=== PATIENT | male | born 1995 | race Caucasian/White ===

== ENCOUNTER 2017-11-23 06:39 | Inpatient (IN) | payer BC ==
[2017-11-23] MEDS ORDERED: methylPREDNISolone NA SUCC 125 MG/2 ML VIAL ONE (06:55)
[2017-11-23] MEDS ORDERED: methylPREDNISolone NA SUCC 125 MG/2 ML VIAL IVPB ONE (06:56)
[2017-11-23] MEDS ORDERED: EPINEPHrine 1:1,000 1 MG/1 ML - 30ML VIAL (INJECTION) IV ONE (06:56)
[2017-11-23] MEDS ORDERED: RACEPINEPHRINE IH SOL 2.25% 11.25 MG/0.5 ML VIAL IH ONE (06:57)
[2017-11-23] MEDS ORDERED: EPINEPHrine/PF 1 MG/1 ML (1:1,000) AMPULE ONE (06:58)
[2017-11-23] MEDS ORDERED: RACEPINEPHRINE IH SOL 2.25% 11.25 MG/0.5 ML VIAL NEB ONE (06:59)
--- NOTE | 2017-11-23 07:14 | PDOC ---
History of Present Illness - General Chief Complaint: Shortness of Breath Stated Complaint: S.O.B. Time Seen by Provider: 11/23/17 07:13 Past History - Past Medical History Allergies/Adverse Reactions: Allergies Allergy/AdvReac Type Severity Reaction Status Date / Time No Known Allergies Allergy Verified 11/23/17 06:54 Home Medications: Ambulatory Orders NK [No Known Home Medication] 11/23/17 - Suicide/Smoking/Psychosocial Hx Smoking History: Never smoked Have you smoked in the past 12 months: No Information on smoking cessation initiated: No Hx Alcohol Use: No Drug/Substance Use Hx: No *Physical Exam - Vital Signs Last Vital Signs Temp Pulse Resp BP Pulse Ox 98.7 F 91 H 18 129/74 99 11/23/17 06:52 11/23/17 06:52 11/23/17 06:52 11/23/17 06:52 11/23/17 06:52 ED Treatment Course - Medications Given in the ED: ED Medications Discontinued Medications Generic Name Dose Route Start Last Admin Trade Name Alonzo PRN Reason Stop Dose Admin Diphenhydramine HCl 50 mg 11/23/17 06:57 11/23/17 07:04 Benadryl Injection - IVPB 11/23/17 06:58 50 mg ONCE ONE Administration Epinephrine 30 mcg 11/23/17 06:56 11/23/17 07:04 Epinephrine 1:1,000 - IV 11/23/17 06:57 30 mcg ONCE ONE Administration Epinephrine 1 vial 11/23/17 06:57 11/23/17 07:04 S-2 IH 11/23/17 06:58 1 vial ONCE ONE Administration Methylprednisolone Sodium Succinate 125 mg 11/23/17 06:56 11/23/17 07:04 Solu-Medrol - IVPB 11/23/17 06:57 125 mg ONCE ONE Administration
--- NOTE | 2017-11-23 07:24 | PDOC ---
Attending Attestation - HPI HPI: 11/23/17 07:49 The patient is a 22 year old male with no significant PMH who presents to the emergency department with swollen tonsils for 3 days. The patient reports that he has has similar episodes similar to this in the past . He reports that this morning his tonsil swelling got worse. The patient reports a subjective fever of 110. He reports associated neck and head pain. He denies any chest pain, shortness of breath, headache and dizziness.The patient denies denies and chills , nausea, vomiting, diarrhea or constipation. He denies any urinary symptoms.The patient denies any other complaints Documentation prepared by Chandu Mccormick, acting as territory sales manager medical for Les Samuel MD. - Physicial Exam PE: 11/23/17 07:50 Vitals: Triage vital signs reviewed General Appearance: No acute distress, well nourished, well developed Head: Atraumatic Nose: Nares patent bilaterally; no nasal congestion Throat: (+) slightly muffled voice, tonsils enlarged, kissing with exudate. Posterior oropharynx without erythema, mucous membranes moist Neck: Supple; No nuchal rigidity Chest Wall: Nontender Cardiac: Regular rate and rhythm, no murmurs, no rubs, no gallops Lungs: (+)stridor on lungs.Good air movement bilaterally Abdomen: Soft, nondistended, normal bowel sounds, nontender to palpation Genitourinary: Rectal: Exam deferred Extremities: Full range of motion to all extremities, no cyanosis, clubbing, or edema Skin: Warm and dry, no rashes or lesions, no rash, no petechiae Psych: Normal mood, normal affect - Medical Decision Making 11/23/17 08:00 The patient is a 22 year old male with no significant PMH who presents to the emergency department with swollen tonsils for 3 days. The patient will continue to me monitored with medication provided in ED. <Chandu Mccormick - Last Filed: 11/23/17 08:00> - Resident Resident Name: Franki Ramsey - ED Attending Attestation I have performed the following: I have examined & evaluated the patient, The case was reviewed & discussed with the resident, I agree w/resident's findings & plan, Exceptions are as noted - Medical Decision Making Moderate to severe tonsillar edema and swelling. Strength examination consistent with pharyngitis. 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 Tonsils are kissing on examination with uvula swelling. Patient also with slightly muffled voice. Patient treated with steroids nebs epinephrine by previous attending. Reevaluation: Patient observed in the emergency department for 3 hours. Still with persistent swelling of tonsils. At this time given moderate to severe symptoms we will observe overnight for IV antibiotics and continued steroids and ENT consultation. <Les Samuel - Last Filed: 11/23/17 12:09> *Review of Systems - Review of Systems Able to Perform ROS?: Yes Comments:: 11/23/17 07:50 Constitutional: (+)subjective fever. ENT: (+)swollen tonsils. No sore throat Cardiovascular: No palpitations; no chest pain Pulmonary: No cough; no trouble breathing Gastrointestinal: No nausea; no vomiting; no diarrhea Genitourinary: No urinary problems; no hematuria Skin: No rash Lymph system: No swollen glands Musculoskeletal: No joint swelling Neurological: No weakness; oo numbness; No Headache; no vertigo; no lightheadedness Psychiatric:No anxiety; no depression <Chandu Mccormick - Last Filed: 11/23/17 08:00>
--- NOTE | 2017-11-23 07:37 | PDOC ---
History of Present Illness - General Chief Complaint: Shortness of Breath Stated Complaint: S.O.B. 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 The patient states that he has had throat swelling since Thursday and he states that it acutely worsened this morning. He has also had subjective fevers yesterday and has been taking Tylenol. He has been tolerating his secretions. He denies any chills, nausea, vomiting, CP, SOB. Past History - Past Medical History Allergies/Adverse Reactions: Allergies Allergy/AdvReac Type Severity Reaction Status Date / Time No Known Allergies Allergy Verified 11/23/17 06:54 Home Medications: Ambulatory Orders NK [No Known Home Medication] 11/23/17 - Suicide/Smoking/Psychosocial Hx Smoking History: Never smoked Have you smoked in the past 12 months: No Information on smoking cessation initiated: No Hx Alcohol Use: No Drug/Substance Use Hx: No Review of Systems - Review of Systems Able to Perform ROS?: Yes Comments:: 11/23/17 07:37 GENERAL/CONSTITUTIONAL: Positive for fever. No chills. No weakness. HEAD, EYES, EARS, NOSE AND THROAT: Positive for throat and neck swelling with soreness. No change in vision. No ear pain or discharge. CARDIOVASCULAR: No chest pain, palpitations, or lightheadedness. RESPIRATORY: No cough, wheezing, shortness of breath, or hemoptysis. GASTROINTESTINAL: No nausea, vomiting, diarrhea, constipation, or abdominal pain. GENITOURINARY: No dysuria, frequency, hematuria, or change in urination. MUSCULOSKELETAL: No joint or muscle swelling or pain. No neck or back pain. SKIN: No rash or lesions. NEUROLOGIC: No headache, numbness, tingling, weakness, loss of consciousness, or change in strength/sensation. ENDOCRINE: No increased thirst. No abnormal weight change. HEMATOLOGIC/LYMPHATIC: No anemia, easy bleeding, or history of blood clots. ALLERGIC/IMMUNOLOGIC: No hives or skin allergy. Is the patient limited Liberian proficient: No *Physical Exam - Vital Signs Last Vital Signs Temp Pulse Resp BP Pulse Ox 98.7 F 91 H 18 129/74 99 11/23/17 06:52 11/23/17 06:52 11/23/17 06:52 11/23/17 06:52 11/23/17 06:52 - Physical Exam Comments: 11/23/17 07:39 GENERAL: Well developed, well nourished. Awake and alert. No acute distress. HEENT: Normocephalic, atraumatic. Hearing grossly normal. Moist mucous membranes. PERRLA, EOMI. No conjunctival pallor. Sclera are non-icteric. B/l tonsillar swelling and erythema, uvula midline, cannot visualize posterior pharynx. Voice mildly muffled. NECK: Supple. Full ROM. No JVD. Anterior cervical lymphadenopathy. CARDIOVASCULAR: Regular rate and rhythm. No murmurs, rubs, or gallops. PULMONARY: No evidence of respiratory distress. B/l rales present in all lung cook. ABDOMINAL: Soft. Non-tender. Non-distended. No rebound or guarding. GENITOURINARY: No CVA tenderness bilaterally. MUSCULOSKELETAL: Normal range of motion at all joints. No bony deformities or tenderness. EXTREMITIES: No cyanosis. No clubbing. No edema. No calf tenderness. SKIN: Warm and dry. Normal capillary refill. No rashes. No jaundice. NEUROLOGICAL: Alert, awake, appropriate. Cranial nerves 2-12 intact. Normal speech. Gait is normal without ataxia. PSYCHIATRIC: Cooperative. Good eye contact. Appropriate mood and affect. ED Treatment Course - LABORATORY CBC & Chemistry Diagram: 11/23/17 08:00 11/23/17 08:00 - Medications Given in the ED: ED Medications Discontinued Medications Generic Name Dose Route Start Last Admin Trade Name Freq PRN Reason Stop Dose Admin Diphenhydramine HCl 50 mg 11/23/17 06:57 11/23/17 07:04 Benadryl Injection - IVPB 11/23/17 06:58 50 mg ONCE ONE Administration Epinephrine 30 mcg 11/23/17 06:56 11/23/17 07:04 Epinephrine 1:1,000 - IV 11/23/17 06:57 30 mcg ONCE ONE Administration Epinephrine 1 vial 11/23/17 06:57 11/23/17 07:04 S-2 IH 11/23/17 06:58 1 vial ONCE ONE Administration Methylprednisolone Sodium Succinate 125 mg 11/23/17 06:56 05/14/18 07:04 Solu-Medrol - IVPB 11/23/17 06:57 125 mg ONCE ONE Administration Medical Decision Making - Medical Decision Making 11/23/17 07:40 The patient is a 22M with a PMH of recurrent tonsillar infections who presents to the ER with 2 days of throat swelling, lymphadenopathy, and fevers. Was given IM epi, racemic epi, solumedrol, and benadryl by the night team but does not feel better than his initial presentation. The patient is satting 100% on RA. Throat swab sent. Pt is tolerating his secretions. Will monitor closely. Pending labs/imaging. Soft tissue XR Read: AP and lateral views reveal a midline patent trachea with clear apices, reversal of cervical spine curvature, intact prevertebral soft tissues and normal appearing epiglottis. There is some prominence of the adenoids and tonsillar soft tissues. For more complete evaluation, further imaging with CT and direct visualization may be of help. 11/23/17 08:58 Labs significant for WBC 17. Will consult Dr. Verde, ENT, for recs. Likely dispo is admission for observation and IV abx. Rapid strep negative. I have consulted ENT, Dr. Verde. 11/23/17 09:36 Paged hospitalist for admission for IV abx and ENT. 11/23/17 10:16 I have admitted the patient to Dr. Wilkerson with Dr. Montoya for ID consult. *DC/Admit/Observation/Transfer Diagnosis at time of Disposition: Tonsillitis - Discharge Dispostion Condition at time of disposition: Stable Decision to Admit order: Yes - Referrals - Patient Instructions - Post Discharge Activity
[2017-11-23 08:07] LABS: BASO % 0.2 % (0-2.0); EOS % 0.5 % (0-4.5); HEMATOCRIT 37.1 % (35.4-49); HEMOGLOBIN 12.7 GM/dL (11.7-16.9); LYMPH % 18.4 % (8-40); MCH 30.6 pg (25.7-33.7); MCHC 34.3 g/dl (32.0-35.9); MEAN CELL VOLUME 89.1 fl (80-96); MEAN PLT VOLUME 7.9 fl (7.5-11.1); MONO % 5.3 % (3.8-10.2); NEUT % 75.6 % (42.8-82.8); PLATELET COUNT 245 K/MM3 (134-434); RBC 4.16 M/mm3 (4.00-5.60); RDW 12.9 % (11.9-15.9); WHITE BLOOD COUNT 17.4 K/mm3 (4.0-10.0)
[2017-11-23 08:37] LABS: ALBUMIN 3.7 g/dl (3.4-5.0); ANION GAP 10 (8-16); BILIRUBIN,TOTAL 0.4 mg/dL (0.2-1.0); BLOOD UREA NITROGEN 8 mg/dL (7-18); CALCIUM 8.2 mg/dL (8.5-10.1); CHLORIDE 106 mmol/L (98-107); CO2 25 mmol/L (21-32); CREATININE 0.8 mg/dL (0.7-1.3); GLUCOSE,RANDOM 120 mg/dL (74-106); POTASSIUM 3.6 mmol/L (3.5-5.1); SGOT/AST 31 U/L (15-37); SGPT/ALT 43 U/L (12-78); SODIUM 141 mmol/L (136-145); TOT PROT 6.8 g/dl (6.4-8.2)
[2017-11-23 08:38] LABS: ALK PHOS 108 U/L (45-117)
[2017-11-23] MEDS ORDERED: AMPICILLIN NA/SULBACTAM NA 1.5 GM in SODIUM CHLORIDE 100 ML IVPB ONE (10:26)
--- NOTE | 2017-11-23 13:39 | HP ---
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 The patient states that he has had throat swelling since Thursday and he states that it acutely worsened this morning. He has also had subjective fevers yesterday and has been taking Tylenol. He has been tolerating his secretions. He denies any chills, nausea, vomiting, CP, SOB. - Smoking History Smoking history: Never smoked Have you smoked in the past 12 months: No - Alcohol/Substance Use Hx Alcohol Use: No Home Medications - Allergies Allergies/Adverse Reactions: Allergies Allergy/AdvReac Type Severity Reaction Status Date / Time No Known Allergies Allergy Verified 11/23/17 06:54 - Home Medications Home Medications: Ambulatory Orders Amoxicillin/Potassium Clav [Augmentin 875-125 Tablet] 1 each PO BID #14 tablet 11/25/17 Prednisone 10 mg PO ASDIR #20 tablet 11/25/17 Physical Examination Vital Signs: Vital Signs Temperature 98.3 F 11/23/17 12:43 Pulse Rate 70 11/23/17 12:34 Respiratory Rate 18 11/23/17 12:34 Blood Pressure 102/60 11/23/17 12:41 O2 Sat by Pulse Oximetry (%) 99 11/23/17 12:34 Constitutional: Yes: No Distress HENT: Yes: WNL, Tonsillar Exudate (tonsils are very enlarge, red and inflammed) Neck: Yes: WNL Cardiovascular: Yes: Regular Rate and Rhythm Respiratory: Yes: CTA Bilaterally Gastrointestinal: Yes: Normal Bowel Sounds Extremities: Yes: WNL Neurological: Yes: Alert, Oriented Labs: CBC, BMP 11/23/17 08:00 11/23/17 08:00 Imaging - Results X-ray: Report Reviewed Problem List - Problems (1) Tonsillitis Assessment/Plan: iv abx, iv steroids full liquid diet id and ent consult Code(s): J03.90 - ACUTE TONSILLITIS, UNSPECIFIED Assessment/Plan Laboratory Tests 11/23/17 11/23/17 08:00 08:00 WBC 17.4 H RBC 4.16 Hgb 12.7 Hct 37.1 MCV 89.1 MCH 30.6 MCHC 34.3 RDW 12.9 Plt Count 245 MPV 7.9 Neutrophils % 75.6 Lymphocytes % 18.4 Monocytes % 5.3 Eosinophils % 0.5 Basophils % 0.2 Sodium 141 Potassium 3.6 Chloride 106 Carbon Dioxide 25 Anion Gap 10 BUN 8 Creatinine 0.8 Creat Clearance w eGFR > 60 Random Glucose 120 H Calcium 8.2 L Total Bilirubin 0.4 AST 31 ALT 43 Alkaline Phosphatase 108 Total Protein 6.8 Albumin 3.7 Active Medications Generic Name Dose Route Start Last Admin Trade Name Freq PRN Reason Stop Dose Admin Acetaminophen 650 mg 11/23/17 18:33 Tylenol - PO Q6H PRN PAIN LEVEL 4 - 6 Ampicillin Sodium/Sulbactam 100 mls @ 200 mls/hr 11/23/17 18:00 11/23/17 18: 18 Sodium 3 gm/ Sodium Chloride IVPB 200 mls/hr Q8H-IV LUIS Administration
--- NOTE | 2017-11-23 13:52 | CON.ID ---
Consult Consult Specialty:: infectious diseases Reason for Consultation:: throat infection - History of Present Illness Chief Complaint: cannot swallow,fever,throat swelling History of Present Illness: 22M with frequently recurrent tonsillitis presented to ER with ~3 days sore throat, subjective fevers. Rapid strep testing was negative. patient mentions that he was also having hard time swallowing his secretions. patient admitted to the hospital for further mgmt - History Source History Provided By: Patient Limitations to Obtaining History: No Limitations - Alcohol/Substance Use Hx Alcohol Use: No - Smoking History Smoking history: Never smoked Have you smoked in the past 12 months: No Home Medications - Allergies Allergies/Adverse Reactions: Allergies Allergy/AdvReac Type Severity Reaction Status Date / Time No Known Allergies Allergy Verified 11/23/17 06:54 - Home Medications Home Medications: Ambulatory Orders NK [No Known Home Medication] 11/23/17 Review of Systems - Review of Systems Constitutional: reports: Chills, Fever Eyes: reports: No Symptoms HENT: reports: Throat Pain Neck: reports: No Symptoms Cardiovascular: reports: No Symptoms Respiratory: reports: Other Gastrointestinal: reports: No Symptoms Genitourinary: reports: No Symptoms Integumentary: reports: No Symptoms Neurological: reports: No Symptoms Endocrine: reports: No Symptoms Hematology/Lymphatic: reports: No Symptoms Psychiatric: reports: No Symptoms Physical Exam Vital Signs: Vital Signs Temperature 97.9 F 11/23/17 13:30 Pulse Rate 74 11/23/17 13:30 Respiratory Rate 18 11/23/17 13:30 Blood Pressure 145/72 11/23/17 13:30 O2 Sat by Pulse Oximetry (%) 99 11/23/17 12:34 Constitutional: Yes: Well Nourished, Calm, Mild Distress, Obese, Other (hoarse voice) Eyes: Yes: Conjunctiva Clear HENT: Yes: Atraumatic, Hoarseness, Pharyngeal Erythema, Other (tonsillar enlargement) Neck: Yes: Supple, Trachea Midline, Tenderness Cardiovascular: Yes: Regular Rate and Rhythm Respiratory: Yes: Regular, CTA Bilaterally Gastrointestinal: Yes: Normal Bowel Sounds, Soft Musculoskeletal: Yes: WNL Extremities: Yes: WNL Neurological: Yes: Alert, Oriented Psychiatric: Yes: Alert, Oriented Labs: CBC, BMP 11/23/17 08:00 11/23/17 08:00 Imaging - Results Cat Scan: Report Reviewed, Image Reviewed Assessment/Plan this young patient coming in with tonsillitis and pharyngitis with rapid strep negative tonsillitis phyaryngitis fever obesity plan will start patient on abx consider starting steroids ent consult hydration rest as per the team await for cx reports
[2017-11-23] MEDS: AMPICILLIN NA/SULBACTAM NA 3 GM in SODIUM CHLORIDE 100 ML IVPB SCH (18:18)
[2017-11-23] MEDS ORDERED: ACETAMINOPHEN 325 MG TABLET (FP) PO PRN (18:33)
[2017-11-23 19:59] VITALS: BMI 31.1
--- NOTE | 2017-11-23 20:27 | CONSULT ---
Consult Consult Specialty:: otolaryngology Referred by:: Dr. Wilkerson Reason for Consultation:: Tonsillitis - History of Present Illness Chief Complaint: sore throat History of Present Illness: 22M with frequently recurrent tonsillitis and one episode of PHARMACY RESIDENT presented to ER with ~3 days sore throat, subjective fevers. Rapid strep testing was negative. He says his sore throats are usually treated by his PMD with observation, though he sometimes gets antibiotics. He estimates his last oral antibiotic for tonsillitis was 3 months ago. Soft tissue films were negative ( neck). He has been afebrile. WBC elevated. ID consulted. He is on unasyn He has been admitted for observation with fluids and steroids. He feels better now at the time of evaluation. No shortness of breath. - History Source History Provided By: Patient Limitations to Obtaining History: No Limitations - Alcohol/Substance Use Hx Alcohol Use: No - Smoking History Smoking history: Never smoked Have you smoked in the past 12 months: No Aproximately how many cigarettes per day: 5 Home Medications - Allergies Allergies/Adverse Reactions: Allergies Allergy/AdvReac Type Severity Reaction Status Date / Time No Known Allergies Allergy Verified 11/23/17 06:54 - Home Medications Home Medications: Ambulatory Orders NK [No Known Home Medication] 11/23/17 Physical Exam Vital Signs: Vital Signs Temperature 97.9 F 11/23/17 17:01 Pulse Rate 74 11/23/17 17:01 Respiratory Rate 17 11/23/17 17:01 Blood Pressure 126/78 11/23/17 17:01 O2 Sat by Pulse Oximetry (%) 98 11/23/17 13:30 Constitutional: Yes: Well Nourished, No Distress, Calm, Other (sitting at bedside with S.O. laughing. Pleasant. NAD. Normal voice. No stridor/stertor. No drooling.) Eyes: Yes: WNL HENT: Yes: Other (Ears: external clear. EACs w/ cerumen. Nose: clear to ant rhinoscopy. +DNS Mouth: no trismus. No soft palate edema. Tonsils 2-3+, minimal exudate. No asymmetry.) Neck: Yes: WNL Respiratory: Yes: WNL Neurological: Yes: Other (CN3-7,11,12 intact symmetrical) Labs: CBC, BMP 11/23/17 08:00 11/23/17 08:00 Imaging - Results X-ray: Report Reviewed Other: Other (Flexible Fiberoptic Laryngoscopy - explained rbla. Questions answered. Passed endoscope through nose to supraglottis, withdrawn. Findings: 1. No supraglottitis/epiglottitis. 2. Mild postcricoid edema 3. Normal vocal fold mobility 4. No masses/lesions 5. Excellent glottic airway 6. Otherwise WNL) Problem List - Problems (1) Tonsillitis Assessment/Plan: Tonsillitis - Supportive measures with IV fluids, pain control. Steroids may provide symptomatic relief along with antibiotics, though strep is negative, final culture pending. Encourage POs. - No evidence of impending airway compromise - No e/o PHARMACY RESIDENT - He snores and may have TERRENCE. We disc TERRENCE and that I would rec PSG for him as outpatient to eval further. - Discussed tonsillectomy, possible UPPP. He is a patient at [facility], and will followup with ENT to discuss these further. Thank you for this consult. Please call with questions. Code(s): J03.90 - ACUTE TONSILLITIS, UNSPECIFIED
[2017-11-24] MEDS: AMPICILLIN NA/SULBACTAM NA 3 GM in SODIUM CHLORIDE 100 ML IVPB SCH ×3 (02:34→17:58)
[2017-11-24] MEDS: methylPREDNISolone NA SUCC 40 MG/1 ML VIAL IVPUSH SCH ×4 (02:34→21:20)
[2017-11-24 07:42] LABS: BASO % 0.1 % (0-2.0); HEMATOCRIT 39.8 % (35.4-49); HEMOGLOBIN 13.7 GM/dL (11.7-16.9); LYMPH % 10.1 % (8-40); MCH 30.5 pg (25.7-33.7); MCHC 34.3 g/dl (32.0-35.9); MEAN PLT VOLUME 8.7 fl (7.5-11.1); MONO % 2.3 % (3.8-10.2); NEUT % 87.5 % (42.8-82.8); PLATELET COUNT 309 K/MM3 (134-434); RBC 4.47 M/mm3 (4.00-5.60); RDW 12.8 % (11.9-15.9); WHITE BLOOD COUNT 17.9 K/mm3 (4.0-10.0)
[2017-11-24 08:16] LABS: ALBUMIN 3.9 g/dl (3.4-5.0); ANION GAP 11 (8-16); BLOOD UREA NITROGEN 14 mg/dL (7-18); CALCIUM 9.7 mg/dL (8.5-10.1); CHLORIDE 105 mmol/L (98-107); CO2 25 mmol/L (21-32); GLUCOSE,RANDOM 133 mg/dL (74-106); SODIUM 141 mmol/L (136-145)
[2017-11-24 08:20] LABS: ALK PHOS 122 U/L (45-117); BILIRUBIN,TOTAL 0.4 mg/dL (0.2-1.0); CREATININE 0.7 mg/dL (0.7-1.3); SGOT/AST 63 U/L (15-37); SGPT/ALT 93 U/L (12-78); TOT PROT 7.9 g/dl (6.4-8.2)
--- NOTE | 2017-11-24 09:47 | PN ---
Progress Note, Physician History of Present Illness: starting to feel much better still with tonsilar swelling but better - Current Medication List Current Medications: Active Medications Acetaminophen (Tylenol -) 650 mg PO Q6H PRN PRN Reason: PAIN LEVEL 4 - 6 Last Admin: 11/23/17 18:55 Dose: 650 mg Ampicillin Sodium/Sulbactam (Sodium 3 gm/ Sodium Chloride) 100 mls @ 200 mls/ hr IVPB Q8H-IV LUIS Last Admin: 11/24/17 09:45 Dose: 200 mls/hr Methylprednisolone Sodium Succinate (Solu-Medrol -) 60 mg IVPUSH Q6H-IV LUIS Last Admin: 11/24/17 08:19 Dose: 60 mg - Objective Vital Signs: Vital Signs Temperature 98.5 F 11/24/17 06:00 Pulse Rate 73 11/24/17 06:00 Respiratory Rate 20 11/24/17 06:00 Blood Pressure 135/67 11/24/17 06:00 O2 Sat by Pulse Oximetry (%) 98 11/23/17 21:00 Constitutional: Yes: No Distress, Calm Cardiovascular: Yes: Regular Rate and Rhythm Respiratory: Yes: Regular, CTA Bilaterally Gastrointestinal: Yes: Normal Bowel Sounds, Soft Musculoskeletal: Yes: WNL Extremities: Yes: WNL Neurological: Yes: Alert, Oriented Psychiatric: Yes: Alert, Oriented Labs: CBC, BMP 11/24/17 06:30 11/24/17 06:30 Assessment/Plan t tonsillitis phyaryngitis fever obesity patients throat cx now positive for strep plan continue abx continue steroids ent to follow need clearance from ent if patient can go home
--- NOTE | 2017-11-24 17:01 | PN ---
Progress Note, Physician History of Present Illness: feeling better - Current Medication List Current Medications: Active Medications Acetaminophen (Tylenol -) 650 mg PO Q6H PRN PRN Reason: PAIN LEVEL 4 - 6 Last Admin: 11/23/17 18:55 Dose: 650 mg Ampicillin Sodium/Sulbactam (Sodium 3 gm/ Sodium Chloride) 100 mls @ 200 mls/ hr IVPB Q8H-IV LUIS Last Admin: 11/24/17 09:45 Dose: 200 mls/hr Methylprednisolone Sodium Succinate (Solu-Medrol -) 60 mg IVPUSH Q6H-IV LUIS Last Admin: 11/24/17 14:18 Dose: 60 mg - Objective Vital Signs: Vital Signs Temperature 98.4 F 11/24/17 14:37 Pulse Rate 82 11/24/17 14:37 Respiratory Rate 18 11/24/17 14:37 Blood Pressure 121/56 11/24/17 14:37 O2 Sat by Pulse Oximetry (%) 98 11/24/17 09:00 Constitutional: Yes: No Distress HENT: Yes: Pharyngeal Erythema, Tonsillar Exudate Neck: Yes: Supple Cardiovascular: Yes: Regular Rate and Rhythm Respiratory: Yes: CTA Bilaterally Gastrointestinal: Yes: Normal Bowel Sounds Extremities: Yes: WNL Edema: No Peripheral Pulses WNL: Yes Neurological: Yes: Alert, Oriented Labs: CBC, BMP 11/24/17 06:30 11/24/17 06:30 Problem List - Problems (1) Tonsillitis Code(s): J03.90 - ACUTE TONSILLITIS, UNSPECIFIED (2) Strep sore throat Assessment/Plan: on abx cxs positive Code(s): J02.0 - STREPTOCOCCAL PHARYNGITIS
[2017-11-24] MEDS ORDERED: PT OWN MED DRAWER 7, Y5N ONE (17:42)
[2017-11-25] MEDS: AMPICILLIN NA/SULBACTAM NA 3 GM in SODIUM CHLORIDE 100 ML IVPB SCH ×2 (01:20→09:21)
[2017-11-25] MEDS: methylPREDNISolone NA SUCC 40 MG/1 ML VIAL IVPUSH SCH ×3 (02:24→14:35)
--- NOTE | 2017-11-25 13:15 | PN ---
Progress Note, Physician History of Present Illness: patient doing well no issues sounds much better patient still on iv steroids - Current Medication List Current Medications: Active Medications Acetaminophen (Tylenol -) 650 mg PO Q6H PRN PRN Reason: PAIN LEVEL 4 - 6 Last Admin: 11/23/17 18:55 Dose: 650 mg Ampicillin Sodium/Sulbactam (Sodium 3 gm/ Sodium Chloride) 100 mls @ 200 mls/ hr IVPB Q8H-IV LUIS Last Admin: 11/25/17 09:21 Dose: 200 mls/hr Methylprednisolone Sodium Succinate (Solu-Medrol -) 60 mg IVPUSH Q6H-IV LUIS Last Admin: 11/25/17 08:58 Dose: 60 mg - Objective Vital Signs: Vital Signs Temperature 97.6 F 11/25/17 09:26 Pulse Rate 70 11/25/17 09:26 Respiratory Rate 20 11/25/17 09:26 Blood Pressure 129/64 11/25/17 09:26 O2 Sat by Pulse Oximetry (%) 98 11/24/17 09:00 Constitutional: Yes: No Distress, Calm Cardiovascular: Yes: Regular Rate and Rhythm Respiratory: Yes: Regular, CTA Bilaterally Gastrointestinal: Yes: Normal Bowel Sounds, Soft Musculoskeletal: Yes: WNL Extremities: Yes: WNL Neurological: Yes: Alert, Oriented Psychiatric: Yes: Alert, Oriented Labs: CBC, BMP 11/24/17 06:30 11/24/17 06:30 Assessment/Plan t tonsillitis phyaryngitis fever obesity patients throat cx now positive for strep patient doing well still with big tonsils but breathing well plan continue abx patient can go home on oral augmentin 875 mg po bid for 6 more days patient needs to follow ent as he might need tonsillectomy rest ct current mgmt
[2017-11-25 15:28] VITALS: BP 151/92; PULSE 85; TEMP 98.2
--- NOTE | 2017-11-25 16:28 | DS ---
Physical Examination Vital Signs: Vital Signs Temperature 98.2 F 11/25/17 14:25 Pulse Rate 85 11/25/17 14:25 Respiratory Rate 20 11/25/17 14:25 Blood Pressure 151/92 11/25/17 14:25 O2 Sat by Pulse Oximetry (%) 98 11/24/17 09:00 Constitutional: Yes: Mild Distress Eyes: Yes: WNL HENT: Yes: Other (tonsills look smaller in size , no exudate) Cardiovascular: Yes: Regular Rate and Rhythm Respiratory: Yes: CTA Bilaterally Gastrointestinal: Yes: Normal Bowel Sounds Extremities: Yes: WNL Labs: CBC, BMP 11/24/17 06:30 11/24/17 06:30 Discharge Summary Reason For Visit: TONSILLITIS Current Active Problems Strep sore throat (Acute) Tonsillitis (Acute) Condition: Stable - Instructions Referrals: Brett Wilkerson MD [Staff Physician] - Disposition: HOME - Home Medications Comprehensive Discharge Medication List: Ambulatory Orders Amoxicillin/Potassium Clav [Augmentin 875-125 Tablet] 1 each PO BID #14 tablet 11/25/17 Prednisone 10 mg PO ASDIR #20 tablet 11/25/17 fu ent and pmd dc home on po abx
== END 2017-11-25 17:34 | disposition home or self-care (01) | DRG 153 ==
LOC: JER 06:39 → JERBED 10:17 → J5S 12:54 → OBSVTOIN 13:39
PROVIDERS: ADMIT Internal Medicine; ATTEND Internal Medicine
DX: J03.01 Acute recurrent streptococcal tonsillitis (principal); E66.9 Obesity, unspecified; Z68.31 Body mass index [BMI] 31.0-31.9, adult; G47.33 Obstructive sleep apnea (adult) (pediatric)
CPT/HCPCS: 36415; 70360-TC-FY; 80053; 85025; 87070; 87077; 87430; 99282-25; G0378